=== PATIENT | male | born 1990 | race Caucasian/White ===

== ENCOUNTER 2016-06-09 23:37 | Emergency (ER) | payer OTHER ==
[2016-06-09] MEDS ORDERED: NS 1,000 ML IV ONE (23:45)
[2016-06-09] MEDS ORDERED: fentaNYL 100 MCG/2 ML INJ IVP ONE (23:45)
[2016-06-09] MEDS ORDERED: fentaNYL 100 MCG/2 ML INJ ONE (23:58)
--- NOTE | 2016-06-09 23:58 | EDPHY ---
H & P Time Seen by Provider: 06/09/16 23:48 HPI/ROS: This is a 26-year-old presenting to the emergency department complaining of left shoulder pain. Patient states he tripped and fell while walking tried to catch himself with an extended left arm and felt a pop. Reports 10/10 pain, decreased range of motion denies any other complaints or injuries REVIEW OF SYSTEMS: Constitutional: No fever no chills Eyes: No blurred vision ENT: No neck pain Musculoskeletal: Left shoulder pain decreased range of motion Skin: No rash Neurological: No headache or dizziness Smoking Status: Current some day smoker Physical Exam: CONSTITUTIONAL: patient appeared well nourished, non-ill appearing and normally developed. No acute distress. Vital signs as documented. HEENT: NCAT. PERRLA. NECK: Supple, no C-spine vertebral tenderness FROM without pain RESP: Non-labored resp effort NEURO: AAOx3 ambulatory without gait disturbance EXTREMITIES: Decreased range of motion left shoulder, no obvious deformity crepitus . Positive cms intact SKIN: Warm and dry no abrasions PSYCH: Normal affect, calm, no distress, acting appropriate Constitutional: Initial Vital Signs Temperature (C) 36.5 C 06/09/16 23:42 Heart Rate 62 06/09/16 23:42 Respiratory Rate 24 H 06/09/16 23:42 Blood Pressure 141/97 H 06/09/16 23:42 O2 Sat (%) 97 06/09/16 23:42 O2 Delivery Mode Room Air O2 (L/minute) 2 Allergies/Adverse Reactions: No Known Allergies Allergy (Unverified 06/09/16 23:41) Home Medications: Medication Instructions Recorded Hydrocodone/Acetaminophen [[place] 1 - 2 tab PO Q4H PRN #10 tab 06/10/16 5/325 (*)] Medical Decision Making - Diagnostics Imaging: Imaging Impressions Shoulder X-Ray 06/09/16 23:44 Impression: Left shoulder anterior dislocation. ED Course/Re-evaluation: Discussed plan of care: X-ray of left shoulder positive for dislocation, 100 mcg fentanyl given. Reduced left shoulder. positive CMS intact. Postreduction films. 0020: Reductions successful as shown on x-ray. Patient placed in a sling, patient reports feeling better. Discharge home---> stable, discussed precautions with discharge instructions Differential Diagnosis: Other differential diagnosis considered but not limited to clavicle fracture, humerus fracture, and scapular fracture - Data Points Medications Given: Discontinued Medications Fentanyl (Sublimaze) 100 mcg IVP EDNOW ONE Stop: 06/09/16 23:46 Last Admin: 06/09/16 23:45 Dose: 100 mcg Sodium Chloride (Ns) 1,000 mls @ 0 mls/hr IV ONCE ONE PRN Reason: Wide Open Stop: 06/09/16 23:46 Last Admin: 06/09/16 23:45 Dose: 1,000 mls Departure - Departure Disposition: Home, Routine, Self-Care Clinical Impression: Shoulder dislocation Qualifiers: Encounter type: initial encounter Laterality: left Qualified Code(s): S43.005A - Unspecified dislocation of left shoulder joint, initial encounter Condition: Good Instructions: Shoulder Dislocation (ED), Exercises for Shoulder Flexion and Extension (ED) Additional Instructions: 1. shoulder x-ray showed a shoulder dislocation, we placed the shoulder joint back in place 2. Ice 15 minutes on every hour as needed for swelling 3. Please leave your arm in the sling until your follow up with Orthopedics for further evaluation. No over stretching no lifting 4. you can take ibuprofen as needed 600 mg every 6-8 hours Referrals: Antony Bender MD [Medical Doctor] - As per Instructions [facility],. [Clinic] - As per Instructions Prescriptions: Hydrocodone/Acetaminophen [[place] 5/325 (*)] 1 - 2 tab PO Q4H PRN #10 tab PRN Reason: Pain, Moderate
[2016-06-10] MEDS ORDERED: HYDROCOD/APAP 5/325 PREPACK#6 BTL TAKEHOME ONE (00:31)
[2016-06-10 00:45] VITALS: BP 146/92; PULSE 67; RESP 18; TEMP 98.4; O2SAT 96
== END 2016-06-10 00:37 | disposition home or self-care (01) ==
PROC: 0RSKXZZ Reposition Left Shoulder Joint, External Approach (ICD-10-PCS; principal; 2016-06-09)
DX: S43.005A Unspecified dislocation of left shoulder joint, initial encounter (principal); F17.200 Nicotine dependence, unspecified, uncomplicated; W01.0XXA Fall on same level from slipping, tripping and stumbling without subsequent striking against object, initial encounter; Y99.8 Other external cause status; Y93.01 Activity, walking, marching and hiking
CPT/HCPCS: 96374; J3010